=== PATIENT | male | born 1945 | race African-American/Black ===

== ENCOUNTER 2016-11-20 12:40 | Observation (INO) | payer MEDICARE, OTHER ==
--- NOTE | ~2016-11-20 | HP ---
History And Physical [place] [id number] [facility] [place]. [address] NAME: BRITTANY BOWLES JR : 49 STATUS : ADM Stewart PAT#: [id number] AGE: 71 ADM/REG DATE : 11/20/16 MR#: [id number] REPORT SERV DATE: 11/20/16 DICTATED BY: DATE: REPORT STATUS : Draft TRANSCRIBED BY: MODDimas DATE: 11/20/16 DATE OF ADMISSION: 11/20/2016 CHIEF COMPLAINT: Syncope. HISTORY OF PRESENT ILLNESS: The patient is a 71-year-old black male with a history of end- stage renal disease, on peritoneal dialysis with diabetes, hypertension, carotid stenosis, and coronary artery disease, he presents to the hospital today after getting up in the early hours of the morning while his peritoneal dialysis was still going, to urinate in the bathroom, he felt very weak and dizzy and then he does not remember the events surrounding but awoke on the toilet. His heard the noise in the bathroom, went to find him, and initially he seemed disoriented. No seizure-type activity. No incontinence; however, it took some time before she could get him aroused enough to get him up off the toilet, he refused, EMS initiation but did finally let her bring him to the emergency department. In the emergency department, his labs are unremarkable. Chest x-ray is unremarkable but he does have some orthostatic hypotension with blood pressure dropping from the 160s to the 130s. He is on multiple medications for hypertension and coronary artery disease. He denies any recent increased UF. His weight has been relatively stable, inconsistent with what he has been doing since he has been on peritoneal dialysis. He denies any fever, he states he is always cold. No shortness of breath. He has had a cough in the last several days and before he went to bed last night, stated he felt a little ill but he has this off and on. It was nothing new. Denied any fevers, no dysuria, no pain or problems with his peritoneal dialysis. No darker blood in his stools. PAST MEDICAL HISTORY: End-stage renal disease; history of serratia peritonitis this summer; diabetes; hypertension; hyperlipidemia; coronary artery disease, status post stenting, follows with Dr. Pardo; and right carotid stenosis followed by Dr. Pardo on Xarelto. FAMILY MEDICAL HISTORY: No end-stage renal disease. SOCIAL HISTORY: He is . No tobacco, alcohol, or illicit drug use. ALLERGIES: NONE. MEDICATIONS: At home, amlodipine; aspirin; atorvastatin; calcium; cinacalcet; ferrous sulfate; hydralazine; insulin Toujeo; Imdur; Cozaar; Lopressor; Centrum; Nitrostat; Protonix; Klor-Con; Xarelto; and Demadex. REVIEW OF SYSTEMS: A 12-point review of systems obtained and negative with the exception of that in the HPI. PHYSICAL EXAMINATION: VITAL SIGNS: Temperature 97.7, blood pressure 161/71, pulse 66, respiratory rate 16, and O2 saturation is 97%. GENERAL: This is a pleasant, cooperative, black male. He is awake, alert, and oriented x3, in no acute distress. Answers questions appropriately. Normocephalic, atraumatic. History And Physical [address] [address] NAME: BRITTANY BOWLES : 49 STATUS : ADM Stewart PAT#: [id number] AGE: 71 ADM/REG DATE : 11/20/16 MR#: [id number] REPORT SERV DATE: 11/20/16 DICTATED BY: DATE: REPORT STATUS : Draft TRANSCRIBED BY: MODL DATE: 11/20/16 Conjunctivae clear. Sclerae anicteric. Pupils equal and round. Oral mucosa is moist. His neck is supple. He does have a right carotid bruit. LUNGS: Respirations are even and unlabored. Breath sounds are clear to auscultation. HEART: Rate is regular. No murmur, rub, or gallop. ABDOMEN: Soft with PD catheter in place. No CVA tenderness. BACK: Within normal limits. EXTREMITIES: No edema, cyanosis, or clubbing. SKIN: Warm, dry, and intact. No unusual rashes or skin lesions. NEUROLOGIC: No focal deficits. Mood and affect pleasant and appropriate. PERTINENT LABS AND X-RAYS: WBC 7.5, H and H 10 and 30, platelets 166,000. Sodium 143, potassium 4.5, chloride 104, CO2 of 27, BUN of 87, creatinine 9.7, calcium 8.3, albumin of 3.6, bilirubin 0.8, alkaline phosphatase 167, SGOT of 28, SGPT of 31, and lipase of 481. Troponin 0.02. TSH 1.2. Chest x-ray is negative. IMPRESSION: 1. Syncope. 2. Orthostatic hypotension. 3. End-stage renal disease, on PD followed by Dr. Schmitt. 4. Diabetes. 5. Hypertension. 6. Carotid stenosis. 7. Coronary artery disease. PLAN: He is going to be observed overnight with telemetry for any cardiac arrhythmias. Orthostatic vital signs will be followed and I have written parameters for holding of his blood pressure medicines. We will try and get a carotid ultrasound either later today versus tomorrow. He will maintain his PD, I will change to 1.5% solution given his orthostasis for tonight instead of 2.5 and 1.5. We will follow very closely. I suspect that this may have been orthostasis related to peritoneal dialysis as he got up to go to urinate in the middle of treatment when this episode took place. Further orders and recommendations pending clinical course. KENDELL/AMINATA ROYA Polanco / [phone]
[2016-11-20 12:16] LABS: BASOPHILS 0.1 %; BASOPHILS ABSOLUTE 0.01 10/3/uL (0.0-0.16); EOSINOPHILS 1.3 %; HEMATOCRIT 30.8 % (40.0-51.0); HEMOGLOBIN 10.2 g/dL (13.6-17.8); IMMATURE GRANULOCYTES 0.1 %; IMMATURE GRANULOCYTES ABSOLUTE 0.01 10/3/uL (0.0-0.11); LYMPHOCYTES 12.7 %; LYMPHOCYTES ABSOLUTE 0.95 10/3/uL (0.67-4.30); MEAN CORPUS HGB CONC 33.1 g/dL (32.0-36.0); MEAN CORPUSCULAR HEMOGLOB 30.8 pg (26.0-34.0); MEAN CORPUSCULAR VOLUME 93.1 fL (80-100); MEAN PLATELET VOLUME 10.1 fL (9.2-13.0); MONOCYTES 6.5 %; MONOCYTES ABSOLUTE 0.49 10/3/uL (0.21-1.20); NEUTROPHILS 79.3 %; NEUTROPHILS ABSOLUTE 5.94 10/3/uL (2.02-8.40); PLATELET COUNT 166 10/3/uL (150-400); RBC DISTRIBUTION WIDTH 13.5 % (12.0-16.0); RED CELL COUNT 3.31 10/6/uL (4.7-6.1); WHITE BLOOD CELLS 7.5 10/3/uL (4.5-10.5)
[2016-11-20 12:20] LABS: MANUAL DIFF NO %
[~2016-11-20 12:40] MED LIST: ACTOS30 PO; APRES25 PO; APRES50 PO; ASA5GR PO; ASAB PO; ASAEC PO; C25 PO; C5 PO; CALCITRIOL0.25 MCG OR; COZAAR100 MG PO; CRESTOR20 MG PO; DEMA10T PO; DEMA20 PO; FERROUS SULF325 M1 PO; FLEXERIL5 MG PO; FOLBEE PO; FOLTX PO; GLUCOTRO10 PO; GLUCXL10 PO; HALF81 PO; HYDRALAZINE100 MG PO; IMDUR30 PO; IRON325 MG PO; ISOSORB DIN30 MG PO; JANUVIA100 MG PO; JANUVIA50 PO; KLOR-CON M1010 MEQ PO; KLOR-CON M2020 MEQ PO; LAM250 PO; LANTUS SC; LEVAQUIN750 MG PO; LOP100 PO; LOP50 PO; LORTAB 5 PO; MICARDIS H80 MG/25 M PO; NITROQUICK0.4 MG SL; NITROSTAT0.4 MG SL; NORV10 PO; NORV5 PO; NOVOLOG SC; NOVOPEN SC; PCET PO; PERCOCET1 TA2 PO; PHOSLO PO; PR25 PO; PROTONIX PO; RAN500 PO; ROCALTROL0.5 MCG PO; SENSIPAR60 MG PO; TOPXL100 PO; TOPXL50 PO; TOUJEO SC; VITAMIN D1000 UNI1 PO; ZETIA PO
[2016-11-20 12:41] LABS: ALKALINE PHOSPHATASE 167 U/L (45-117); BUN (BLOOD UREA NITROGEN) 87 MG/DL (6-23); CALCIUM, SERUM 8.3 MG/DL (8.5-10.4); CHLORIDE, SERUM 104 MMOL/L (96-112); CO2 (CARBON DIOXIDE) 27 MMOL/L (24-34); GLOBULIN 3.5 G/DL (2.5-4.1); GLUCOSE, SERUM 200 MG/DL (60-99); POTASSIUM, SERUM 4.5 MMOL/L (3.5-5.3); SGOT(AST) 28 U/L (5-40); SGPT(ALT) 31 U/L (5-65); SODIUM, SERUM 143 MMOL/L (135-148); TOTAL BILIRUBIN 0.8 MG/DL (0-1.2); TOTAL PROTEIN 7.1 G/DL (6.0-8.5); TROPONIN I <0.02 NG/ML (<0.05)
[2016-11-20 12:42] LABS: ALBUMIN 3.6 G/DL (3.5-5.0); CREATININE 9.71 MG/DL (0.70-1.30); GFR AFRICAN AMERICAN 6 ML/MIN (>=60); GFR NON AFRICAN AMERICAN 5 ML/MIN (>=60)
[2016-11-20] MEDS ORDERED: CENTRUM PO (13:59)
[2016-11-20] MEDS ORDERED: PROTONIX PO (13:59)
[2016-11-20] MEDS ORDERED: XARELTO20 MG PO (14:00)
[2016-11-20] MEDS ORDERED: IMDUR30 PO (14:00)
[2016-11-20] MEDS ORDERED: NORV10 PO (14:00)
[2016-11-20] MEDS ORDERED: TOPXL50 PO (14:00)
[2016-11-20] MEDS ORDERED: HALF81 PO (14:01)
[2016-11-20] MEDS ORDERED: LIPITOR40 PO (14:01)
[2016-11-20] MEDS ORDERED: NITROSTAT0.4 MG SL (14:01)
[2016-11-20] MEDS ORDERED: HYDRALAZINE100 MG PO (14:01)
[2016-11-20] MEDS ORDERED: FERROUS SULF325 M1 PO (14:01)
[2016-11-20] MEDS ORDERED: COZAAR100 MG PO (14:02)
[2016-11-20] MEDS ORDERED: KLOR-CON M2020 MEQ PO (14:02)
[2016-11-20] MEDS ORDERED: PHOSLO PO (14:03)
[2016-11-20] MEDS ORDERED: DEMA20 PO (14:03)
[2016-11-20] MEDS ORDERED: SENSIPAR60 MG PO (14:04)
[2016-11-20] MEDS ORDERED: TOUJEO SC (14:04)
[2016-11-20] MEDS ORDERED: LOP50 PO (14:05)
[2016-11-20] MEDS ORDERED: NOVOPEN SC (14:05)
[2016-11-21 06:20] LABS: BASOPHILS 0.1 %; BASOPHILS ABSOLUTE 0.01 10/3/uL (0.0-0.16); EOSINOPHILS 1.9 %; EOSINOPHILS ABSOLUTE 0.13 10/3/uL (0.0-0.53); HEMATOCRIT 27.7 % (40.0-51.0); HEMOGLOBIN 9.1 g/dL (13.6-17.8); IMMATURE GRANULOCYTES 0.1 %; IMMATURE GRANULOCYTES ABSOLUTE 0.01 10/3/uL (0.0-0.11); LYMPHOCYTES 23.4 %; LYMPHOCYTES ABSOLUTE 1.59 10/3/uL (0.67-4.30); MANUAL DIFF NO %; MEAN CORPUS HGB CONC 32.9 g/dL (32.0-36.0); MEAN CORPUSCULAR HEMOGLOB 30.8 pg (26.0-34.0); MEAN CORPUSCULAR VOLUME 93.9 fL (80-100); MEAN PLATELET VOLUME 11.1 fL (9.2-13.0); MONOCYTES ABSOLUTE 0.61 10/3/uL (0.21-1.20); NEUTROPHILS 65.5 %; NEUTROPHILS ABSOLUTE 4.45 10/3/uL (2.02-8.40); PLATELET COUNT 164 10/3/uL (150-400); RBC DISTRIBUTION WIDTH 13.5 % (12.0-16.0); RED CELL COUNT 2.95 10/6/uL (4.7-6.1); WHITE BLOOD CELLS 6.8 10/3/uL (4.5-10.5)
[2016-11-21 06:23] LABS: BUN (BLOOD UREA NITROGEN) 85 MG/DL (6-23); CALCIUM, SERUM 8.2 MG/DL (8.5-10.4); CHLORIDE, SERUM 107 MMOL/L (96-112); CO2 (CARBON DIOXIDE) 27 MMOL/L (24-34); CREATININE 9.33 MG/DL (0.70-1.30); GFR AFRICAN AMERICAN 6 ML/MIN (>=60); GFR NON AFRICAN AMERICAN 5 ML/MIN (>=60); PHOSPHORUS, SERUM 3.9 MG/DL (2.5-4.5); POTASSIUM, SERUM 4.2 MMOL/L (3.5-5.3); SODIUM, SERUM 146 MMOL/L (135-148)
[2016-11-21 06:25] LABS: ALBUMIN 2.8 G/DL (3.5-5.0); GLUCOSE, SERUM 114 MG/DL (60-99)
[2017-01-21] MEDS ORDERED: DEMA100 PO (14:03)
[2017-01-21] MEDS ORDERED: MULTIPLE VIT PO (14:35)
== END 2016-11-21 18:16 | disposition home or self-care (01) ==
LOC: ER 12:40 → 4SO 15:36
PROVIDERS: Emergency Medicine; Nurse Practitioner
DX: R55 Syncope and collapse (principal); I95.1 Orthostatic hypotension; N18.6 End stage renal disease; E11.9 Type 2 diabetes mellitus without complications; I12.0 Hypertensive chronic kidney disease with stage 5 chronic kidney disease or end stage renal disease; I25.10 Atherosclerotic heart disease of native coronary artery without angina pectoris
CPT/HCPCS: 71010; 80053; 80069; 82962; 83690; 84443; 84484; 85025; 93005; 93880; 96374; 99285; A9270-GY; G0378

== ENCOUNTER 2017-01-24 12:06 | Day surgery (SDC) | payer MEDICARE, OTHER ==
--- NOTE | ~2017-01-24 | PREOPHP ---
PreOp History and Physical [place] [id number] [place]. [address] NAME: BRITTANY BOWLES JR : 49 STATUS : PRE [facility] [place] PAT#: [id number] AGE: 71 ADM/REG DATE : MR#: [id number] REPORT SERV DATE: 01/22/17 DICTATED BY: ABEL CRUZ III DATE: 01/22/17 REPORT STATUS : Draft TRANSCRIBED BY: MODL DATE: 01/22/17 HISTORY OF PRESENT ILLNESS: This 71-year-old male comes to the operating room for laparoscopic revision of a nonfunctioning peritoneal dialysis catheter, possible replacement of the catheter, possible laparotomy. In addition, the patient has incisional hernia which may be repaired if this can be performed without disrupting the time involved for him to resume peritoneal dialysis. The patient has a history of end-stage renal disease. He is currently on peritoneal dialysis. He has a peritoneal dialysis catheter which has been present since June of 2012. Recently, the catheter has failed to flush adequately and draining adequately. It was felt that revision and possible placement of the catheter is indicated. The patient also has a recurrent incisional hernia. This hernia will be repaired if this can be done with minimal disruption to the time which will be required for him to resume peritoneal dialysis. PAST MEDICAL HISTORY: 1. End-stage renal disease, dialysis dependent, with the patient being on peritoneal dialysis for the last five years. 2. Coronary artery disease. 3. Hypertension. 4. Hyperlipidemia. 5. Insulin-dependent diabetes mellitus. MEDICATIONS: Pantoprazole, metoprolol, amlodipine, isosorbide, Xarelto, aspirin, iron, hydralazine, Crestor, losartan, torsemide, calcium, potassium, insulin. FAMILY HISTORY: Positive for cancer. SOCIAL HISTORY: The patient has no history of tobacco or alcohol use. ALLERGIES: NONE. REVIEW OF SYSTEMS: The patient complains of swelling in hands and feet, and chest pain. PHYSICAL EXAMINATION: GENERAL: This is a large obese male, in no acute distress. He is alert and oriented x3. VITAL SIGNS: Blood pressure 105/55, temperature 97.4, pulse 63. HEENT: Unremarkable. Cranial nerves II through XII were normal. LUNGS: Clear. CARDIAC: Normal. ABDOMEN: Soft, nontender. The patient has incisional hernia located above his umbilicus. This is recurrent. The hernia is reducible. He has a peritoneal dialysis catheter in place. ASSESSMENT: A 71-year-old male with end-stage renal disease, currently dependent on PreOp History and Physical [address] [address] NAME: BRITTANY BOWLES JR : 49 STATUS : PRE [facility] [place] PAT#: [id number] AGE: 71 ADM/REG DATE : MR#: [id number] REPORT SERV DATE: 01/22/17 DICTATED BY: ABEL CRUZ III DATE: 01/22/17 REPORT STATUS : Draft TRANSCRIBED BY: AMINATA DATE: 01/22/17 peritoneal dialysis, with nonfunctioning peritoneal dialysis catheter. 1. Recurrent incisional hernia. 2. Hypertension. 3. Hyperlipidemia. 4. Coronary artery disease. 5. History of end-stage renal disease. 6. Diabetes mellitus. PLAN: The patient comes to the operating room now for laparoscopic revision of his peritoneal dialysis catheter, possible replacement of the catheter, possible laparotomy. In addition, his incisional hernia will be repaired and this can be performed with minimal disturbance of the time that he can resume peritoneal dialysis. Regarding this procedure, the risks, benefits, and alternatives, including but not limited to the risk for bleeding, infection, enterotomy, injury to any abdominal structure, postop small bowel obstruction, ileus, incisional hernia recurrence, seroma formation, hematoma formation, possible need for use of mesh, risk of infection of the mesh or enterocutaneous fistula requiring removal of mesh, failure of the new or revised catheter to function, infection, or migration of the new or revised catheter requiring revision or replacement, occlusion of the catheter requiring revision or replacement, possible need for laparotomy, possibility that he may not be a candidate for peritoneal dialysis and unforeseen complications including deep venous thrombosis, pulmonary embolus, myocardial infarction, stroke, pneumonia, and , have been fully and completely explained to the patient at length prior to surgery. The fact that this is a major operation with risk for major morbidity and mortality has been explained. The expected length of recovery with both open and laparoscopic procedures has been explained. The fact that he will be at increased risk for thromboembolic complications while his Xarelto is held perioperatively has been explained as well as increased risk of bleeding because of the use of this medication. The patient's questions have been answered. He clearly understands the risks and agrees to surgery as planned. RHJ/MODL Abel Cruz III, M.D. / [id number] CC: Abel Cruz III, M.D.
--- NOTE | ~2017-01-24 | OP ---
Record Of Operation [facility] [address] [place]. [address] NAME: BRITTANY BOWLES JR : 49 STATUS : [facility]#: [id number] AGE: 71 ADM/REG DATE : 01/24/17 MR#: [id number] REPORT SERV DATE: 01/25/17 DICTATED BY: SIERRA MONTAGUE III DATE: 01/25/17 REPORT STATUS : Draft TRANSCRIBED BY: MODL DATE: 01/25/17 DATE OF PROCEDURE: 01/24/2017 POSTOPERATIVE DIAGNOSES: End-stage renal disease, dialysis dependent, with nonfunctioning peritoneal dialysis catheter, and recurrent symptomatic incisional hernia. POSTOPERATIVE DIAGNOSES: End-stage renal disease, dialysis dependent, with nonfunctioning peritoneal dialysis catheter, and recurrent symptomatic incisional hernia. PROCEDURE: Laparoscopic peritoneal dialysis catheter placement, removal of nonfunctioning peritoneal dialysis catheter, and repair of recurrent incisional hernia. SURGEON: Sierra Montague M.D. ANESTHESIA: General with intubation. COMPLICATIONS: None. ESTIMATED BLOOD LOSS: Less than 5 mL. SPECIMENS: Old peritoneal dialysis catheter for identification. DRAINS: None. LAP AND SPONGE COUNT: Correct x3. BRIEF HISTORY: This 71-year-old male has a history of end-stage renal disease. He has been on hemodialysis for several years and has a peritoneal dialysis catheter which was placed several years ago. Recently, the catheter has failed to function and would not flush. In addition, the patient a developed recurrent incisional hernia in the periumbilical area. It was felt that laparoscopic revision of the catheter, possible replacement of the catheter, with repair of incisional hernia is indicated. This procedure, the risks, benefits, and alternatives, including not limited to the risk for bleeding, infection, enterotomy, injury to abdominal structure, postop small bowel obstruction, ileus, incisional hernia recurrence, seroma formation, hematoma formation, failure of the new or revised catheter to function, infection of the new or revised catheter requiring removal or replacement, peritonitis requiring removal of the catheter, occlusion or migration of the catheter requiring revision or replacement, possible need for laparotomy with the possibility that the patient may not be a candidate for peritoneal dialysis and unforeseen complications including deep venous thrombosis, pulmonary embolus, myocardial infarction, stroke, pneumonia, and , were fully and completely explained to the patient and his family prior to surgery. Their questions were answered. They understood the risks and agreed to surgery as planned. DESCRIPTION OF PROCEDURE: After being appropriately identified and after discussing the risks of surgery with the patient and his family again in the preoperative area and after identifying the hernia with him in the preoperative area, the patient was taken to the Record Of Operation [address] [address] NAME: BRITTANY BOWLES JR : 49 STATUS : [facility]#: [id number] AGE: 71 ADM/REG DATE : 01/24/17 MR#: [id number] REPORT SERV DATE: 01/25/17 DICTATED BY: SIERRA MONTAGUE III DATE: 01/25/17 REPORT STATUS : Draft TRANSCRIBED BY: AMINATA DATE: 01/25/17 operating room and placed in the supine position on the operating room table. General anesthesia was administered. He was intubated without difficulty. The abdomen was prepped and draped sterilely in the usual fashion. After an appropriate "time-out" per JCAHO standards, a small incision was made just above and down towards the umbilicus, in the midline, over the previous incision, directly over the previous hernia. The incision was continued through the subcutaneous tissue. Hemostasis was controlled with cautery. We identified the fascial defect which was about 2 cm in size. This was cleared posteriorly of all adhesions. A #10 origin balloon tipped trocar was placed through this hernia defect into the abdominal cavity. The balloon was inflated. The abdominal cavity was then insufflated to about 13 it was marked with carbon dioxide. The correct position of the air in the peritoneal cavity was confirmed by palpation. The laparoscope was placed through the trocar and the abdomen was inspected. It was noted immediately that the peritoneal dialysis catheter had migrated into the left upper quadrant. It was densely adherent to the omentum. The catheter appeared to be old and plugged and filled with fibrin. This catheter was several years old and it was my judgment that it would be best to place a new catheter and remove this nonfunctioning catheter. A 5 mm trocar was then placed along the left lateral abdominal wall just lateral to the umbilicus, under direct vision with a laparoscope. A 5 mm laparoscope was now placed through this. A new peritoneal dialysis catheter was then placed through the 10 mm trocar. It was introduced into the pelvis. It was placed in the rectal cul-de-sac. It was secured in place with a transfascial 0 Prolene suture. This resulted in good position of the catheter in the pelvis in the midline. We then made an incision over the left upper quadrant abdominal wall where the second cuff or D-cuff of the previously placed peritoneal dialysis catheter was located. The incision was continued down to the fascia. We identified the inner cuff of the old catheter. It was carefully dissected free from the fascia. The intraabdominal portion of the catheter was then completely removed. The second cuff or superficial cuff was located in the midline just beneath the incision where the old catheter exited the abdominal wall. This incision was slightly extended and the cuff was dissected free from the subcutaneous tissue. In this way the entire intraabdominal and abdominal wall portion of the old catheter was completely and totally removed. It was sent for identification. The fascia in the left upper quadrant where the catheter had entered the abdominal wall was closed with 0 Prolene sutures. A #5 lateral abdominal wall trocar was removed under direct vision of the laparoscope to assure hemostasis. Finally the midline 10 mm trocar was removed under direct vision to assure hemostasis. The inner cuff of the new catheter was positioned at the level of the fascial defect. Using sharp dissection, the skin and subcutaneous tissue around the fascial defect anteriorly was fully mobilized. It was noted that the fascia around the defect was very Record Of Operation [address] [place]. [address] NAME: BRITTANY BOWLES JR : 49 STATUS : [facility] PAT#: [id number] AGE: 71 ADM/REG DATE : 01/24/17 MR#: [id number] REPORT SERV DATE: 01/25/17 DICTATED BY: SIERRA MONTAGUE III DATE: 01/25/17 REPORT STATUS : Draft TRANSCRIBED BY: MODL DATE: 01/25/17 mobile and loose. I felt that this could be closed primarily and avoid the need for the use of mesh with risk of infection of the mesh. For this reason, the fascial edges were reapproximated with interrupted 0 Prolene sutures. It came together nicely with no tension. The inner cuff of the new catheter was positioned at the lateral aspect of this fascial closure. A subcutaneous tunnel was then made between this incision and the left lateral abdominal wall trocar incision. The end of the dialysis catheter was brought out through this. The superficial cuff was left in the subcutaneous tissue. This resulted in good positioning of the catheter. The catheter was then connected to a 500 mL bag of saline. The saline was noted to flow easily through the catheter. It flowed easily with no resistance. The saline bag was then placed to the ground and the fluid was allowed to egress out of the abdominal cavity by gravity. It egressed rapidly with no resistance. Hemostasis was assured. The subcutaneous tissue of this incision was closed with a running 3-0 chromic suture. The skin incisions were closed with running subcuticular 4-0 Monocryl stitches. They were injected with 0.5% Marcaine. Dressings were applied. Anesthesia was reversed. The patient was taken to the recovery room in stable condition. He tolerated the procedure well. His family was informed of the results of surgery. The patient will be discharged when stable and comfortable. His family was advised to keep his wounds clean and dry for one week. They should resume his usual diet and usual medications and monitor his glucose carefully. They are advised that he should not drive for three to four days after surgery or while using narcotics and that he should not perform any heavy lifting for 5 to 6 weeks. It was advised that he should be in touch with his district captain on the following day to resume peritoneal dialysis as he instructed. I recommended that this be resumed over a lower volume to prevent leakage of dialysis fluid from his incisions. He was asked to return to see me in two weeks for followup. He was asked to return sooner or call for any nausea, vomiting, fever, chills, abdominal pain, weakness, or other problems prior to that time. He was given a prescription for Percocet 7.5 one t.i.d., #12, as needed for pain, which he was advised not to use while driving. RHJ/MODL Sierra Montague III, M.D. / [id number] CC: Woodrow Liao III
[~2017-01-24 12:06] MED LIST changes: +CENTRUM PO; +DEMA100 PO; +LIPITOR40 PO; +MULTIPLE VIT PO; +XARELTO20 MG PO
[2017-01-24 12:46] LABS: BASOPHILS 0.3 %; BASOPHILS ABSOLUTE 0.02 10/3/uL (0.0-0.16); EOSINOPHILS 3.4 %; EOSINOPHILS ABSOLUTE 0.24 10/3/uL (0.0-0.53); HEMATOCRIT 34.2 % (40.0-51.0); HEMOGLOBIN 10.9 g/dL (13.6-17.8); LYMPHOCYTES ABSOLUTE 1.62 10/3/uL (0.67-4.30); MEAN CORPUS HGB CONC 31.9 g/dL (32.0-36.0); MEAN CORPUSCULAR HEMOGLOB 28.1 pg (26.0-34.0); MEAN PLATELET VOLUME 10.6 fL (9.2-13.0); MONOCYTES 6.2 %; MONOCYTES ABSOLUTE 0.44 10/3/uL (0.21-1.20); NEUTROPHILS 67.1 %; NEUTROPHILS ABSOLUTE 4.73 10/3/uL (2.02-8.40); RBC DISTRIBUTION WIDTH 15.4 % (12.0-16.0); RED CELL COUNT 3.88 10/6/uL (4.7-6.1); WHITE BLOOD CELLS 7.1 10/3/uL (4.5-10.5)
[2017-01-24 12:47] LABS: MANUAL DIFF NO %; MEAN CORPUSCULAR VOLUME 88.1 fL (80-100); PLATELET COUNT 222 10/3/uL (150-400)
[2017-01-24 13:01] LABS: CALCIUM, SERUM 9.2 MG/DL (8.5-10.4); CHLORIDE, SERUM 104 MMOL/L (96-112); CO2 (CARBON DIOXIDE) 29 MMOL/L (24-34); GLUCOSE, SERUM 192 MG/DL (60-99); POTASSIUM, SERUM 3.9 MMOL/L (3.5-5.3); SGOT(AST) 27 U/L (5-40); SGPT(ALT) 32 U/L (5-65); SODIUM, SERUM 144 MMOL/L (135-148); TOTAL BILIRUBIN 0.6 MG/DL (0-1.2); TOTAL PROTEIN 7.4 G/DL (6.0-8.5)
[2017-01-24 13:02] LABS: A/G RATIO 1.1 (0.7-1.9); ALBUMIN 3.8 G/DL (3.5-5.0); ALKALINE PHOSPHATASE 215 U/L (45-117); BUN (BLOOD UREA NITROGEN) 110 MG/DL (6-23); CREATININE 9.67 MG/DL (0.70-1.30); GFR AFRICAN AMERICAN 6 ML/MIN (>=60); GFR NON AFRICAN AMERICAN 5 ML/MIN (>=60); GLOBULIN 3.6 G/DL (2.5-4.1)
== END 2017-01-24 20:25 | disposition home or self-care (01) ==
LOC: SDC 12:06
PROVIDERS: Surgery
PROC: 0WPG43Z Removal of Infusion Device from Peritoneal Cavity, Percutaneous Endoscopic Approach (ICD-10-PCS; 2017-01-24)
PROC: 0WQF4ZZ Repair Abdominal Wall, Percutaneous Endoscopic Approach (ICD-10-PCS; principal; 2017-01-24 13:15)
PROC: 0WHG43Z Insertion of Infusion Device into Peritoneal Cavity, Percutaneous Endoscopic Approach (ICD-10-PCS; 2017-01-24 13:15)
DX: N18.6 End stage renal disease (principal); T85.611A Breakdown (mechanical) of intraperitoneal dialysis catheter, initial encounter; K43.2 Incisional hernia without obstruction or gangrene; Z99.2 Dependence on renal dialysis
CPT/HCPCS: 80053; 82962; 85025; 88300; 93005; A9270-GY; C1752; J0690; J2250; J2405; J2710; J3010